=== PATIENT | female | born 1975 | race Caucasian/White ===

== ENCOUNTER → 2019-10-07 | Outpatient (CLI) | payer BC ==
--- NOTE | 2019-10-07 14:49 | RAD ---
Chest radiograph 10/07/2019 12:00 AM INDICATION: Chronic cough for one year COMPARISON: None available TECHNIQUE: Frontal and lateral views of the chest are provided. FINDINGS: The cardiomediastinal silhouette is within normal limits. There are no pleural effusions. There is no pulmonary vascular congestion. There is no pneumothorax. The lungs are clear. No significant osseous abnormality is identified. IMPRESSION: No acute cardiopulmonary process. Electronically signed by: Laura Lucas MD (10/07/2019 2:47 PM) [facility]
== END | disposition home or self-care (01) ==
LOC: RAD 14:06
PROVIDERS: ATTEND Internal Medicine Pulmonary Disease
DX: R05 Cough (principal)
CPT/HCPCS: 71046

== ENCOUNTER → 2019-12-10 | Outpatient (CLI) | payer BC ==
--- NOTE | 2019-12-10 13:54 | RAD ---
CT CHEST HIGH RESOLUTION WO INDICATION: cough, Sjogen"s disease Comparison: None. TECHNIQUE: Unenhanced axial CT sections were obtained through the lungs and upper abdomen. Coronal and sagittal multiplanar reconstructions were also obtained. Inspiratory and expiratory thin section and prone images were obtained. PQRS compliance statement: One or more of the following individualized dose reduction techniques were utilized for this examination: Automated exposure control, adjustment of the mA and/or kV according to patient size, use of iterative reconstruction technique. FINDINGS: Lungs and Airways: No pulmonary mass or consolidation. No endoluminal lesion. Inspiratory thin section images demonstrate no evidence of ground glass opacity, consolidation, bronchiectasis or interstitial lung disease. No pulmonary micronodules, cystic changes or pulmonary fibrosis. Expiratory high resolution images demonstrate no evidence of air trapping. Prone high resolution images demonstrate no evidence of basilar reticulation, groundglass opacity or fibrosis. Pleura: The pleural spaces are normal. Heart and Mediastinum: The visualized portions of the thyroid gland are normal in size and attenuation. No axillary or supraclavicular lymphadenopathy. No mediastinal, hilar or retrocrural lymphadenopathy. Calcified mediastinal and right hilar lymph nodes, consistent with remote granulomatous disease. The heart and pericardium are within normal limits. The great vessels of the thorax are normal. Abdomen: Cholelithiasis. Calcified splenic granulomas. Bones and Soft Tissues: Normal osseous structures. The soft tissues of the chest wall are within normal limits. IMPRESSION: 1. No evidence of interstitial lung disease. 2. No pulmonary mass or consolidation. Electronically signed by: Ean Amezquita MD (12/10/2019 1:51 PM) [id number]
== END ==
LOC: CT 09:22
PROVIDERS: ATTEND Internal Medicine Pulmonary Disease
DX: R05 Cough (principal); M35.00 Sjogren syndrome, unspecified
CPT/HCPCS: 71250